=== PATIENT | male | born 1990 | race Caucasian/White ===

== ENCOUNTER 2018-03-25 21:13 | Emergency (ER) | payer MEDICAID | END 2018-03-25 23:37 | disposition home or self-care (01) | LOC: FTE 21:13 | DX: S43.402A Unspecified sprain of left shoulder joint, initial encounter (principal); F17.210 Nicotine dependence, cigarettes, uncomplicated; V00.131A Fall from skateboard, initial encounter; Y92.9 Unspecified place or not applicable | CPT/HCPCS: 73030; 99283-25 ==